=== PATIENT | female | born 1965 | race Caucasian/White ===

== ENCOUNTER 2017-09-16 16:33 | Emergency (ER) | payer BC ==
[2017-09-16 16:59] VITALS: BP 132/86
--- NOTE | 2017-09-21 08:54 | UC ---
Maryanne Woodward Emily, scribed for Wendy Mendoza MD on 09/16/17 at 1820 . Back Pain HPI - HPI Summary HPI Summary: This patient is a 52 year old F presenting to urgent care with a chief complaint of middle back pain radiating to RLE that began 2 days ago. Pt reports pain in leg feeling like a [place] horse. The patient rates the pain 8 /10 in severity. Symptoms alleviated by nothing. Patient denies loss of bladder control. Pt denies any recent trauma. Pt has a history back problems. Patients medications reviewed this visit. - History of Current Complaint Chief Complaint: UCBackPain Stated Complaint: BACK PAIN Time Seen by Provider: 09/16/17 17:57 Hx Obtained From: Patient Onset/Duration: Sudden Onset, Lasting Days, Still Present Timing: Constant, Lasting Days Severity Initially: Severe Severity Currently: Severe Pain Intensity: 8 Pain Scale Used: 0-10 Numeric Alleviating Factor(s): Nothing - Allergies/Home Medications Allergies/Adverse Reactions: Allergies Allergy/AdvReac Type Severity Reaction Status Date / Time Sulfamethoxazole Allergy Severe Itching Verified 08/19/17 15:08 w/Trimethoprim [From Bactrim] Home Medications: Home Medications Naproxen Sodium [Naproxen Sodium 220 mg] 440 mg PO 09/16/17 [History] PMH/Surg Hx/FS Hx/Imm Hx Previously Healthy: No Endocrine History: Other Other Endocrine History: Negative diabetes Cardiovascular History: Hypertension Respiratory History: Asthma Cancer History: Other Other Cancer History: Basal Cell CA Other History Of: Negative For: Anticoagulant Therapy - Surgical History Surgical History: Yes Surgery Procedure, Year, and Place: TUBAL LIGATION,. CHOLECYSTECTOMY. BREAST AUGMENTATION. TONSILECTOMY - Family History Known Family History: Positive: Cardiac Disease, Hypertension - Social History Occupation: Employed Full-time Lives: With Family Alcohol Use: None Substance Use Type: None Smoking Status (MU): Never Smoked Tobacco Review of Systems Genitourinary: Other - Negative loss of bladder control Musculoskeletal: Other: - Positive back pain All Other Systems Reviewed And Are Negative: Yes Physical Exam Triage Information Reviewed: Yes Appearance: Well-Appearing - Pt easiy changes position chair to exam table, lying, No Pain Distress Vital Signs: Initial Vital Signs Temp 98.1 F 09/16/17 16:55 Pulse 87 09/16/17 16:55 Resp 18 09/16/17 16:55 BP 132/86 09/16/17 16:55 Pulse Ox 98 09/16/17 16:55 Eye Exam: Normal ENT Exam: Normal ENT: Positive: Normal ENT inspection, Hearing grossly normal Dental Exam: Normal Neck exam: Normal Neck: Positive: 1 Respiratory Exam: Normal Respiratory: Positive: Chest non-tender, Lungs clear, Normal breath sounds, No respiratory distress, No accessory muscle use Cardiovascular Exam: Normal Cardiovascular: Positive: RRR, No Murmur, Pulses Normal Abdominal Exam: Normal Abdomen Description: Positive: Nontender, No Organomegaly, Soft. Negative: CVA Tenderness (R), CVA Tenderness (L) Musculoskeletal: Positive: Other: - No pain spinous process c/t/l/s + mild pain paraspinal right lumbar > left + SLE b/l + flex/ext knee, ankle + great toe extension Neurological Exam: Normal Neurological: Positive: Other: - + gross b/l equal sensation throughout LE 2+ patellar b/l no clonus Psychological Exam: Normal Skin Exam: Normal Back Pain Course/Dx - Course Course Of Treatment: PT with persistent, chronic back pain with paresthesia RLE no leg weakness. Pt with paraspinal pain with direct palp. Reviewed records f. will give flexeril. motrain/apap. lifting restrictions - Differential Dx/Diagnosis Provider Diagnoses: back pain Discharge - Discharge Plan Condition: Stable Disposition: HOME Prescriptions: Methylprednisolone [Medrol Dosepak 4 MG*] 4 mg PO .SEE CARY INSTRUCTION #1 tab Patient Education Materials: Lumbar Radiculopathy (ED), Chronic Back Pain (ED) Forms: *Work Release Referrals: Beena Winters MD [Primary Care Provider] - Brandi Hobson MD [Medical Doctor] - Additional Instructions: - Stay well hydrated. Drink plenty of non-alcohoholic, non-caffinated beverages - Take prednisone as prescribed until gone - Okay to take Tylenol every 6 hours for pain - Apply heat to your back. Once your muscles are warm, slow gentle stretching exercises are important - Contact the hospital billing / account office at [phone] to discuss a payment plan for your bill - Contact the pain management clinic to schedule a follow-up appointment and discuss the further evaluation / treatment for your back The documentation as recorded by the Maryanne saavedra Emily accurately reflects the service I personally performed and the decisions made by me, Wendy Mendoza MD.
== END 2017-09-16 18:43 | disposition home or self-care (01) ==
LOC: UCEAST 16:33
DX: M54.9 Dorsalgia, unspecified (principal); I10 Essential (primary) hypertension; J45.909 Unspecified asthma, uncomplicated; Z85.828 Personal history of other malignant neoplasm of skin; Z90.49 Acquired absence of other specified parts of digestive tract; Z88.2 Allergy status to sulfonamides
CPT/HCPCS: 81003; 99212; G0463

== ENCOUNTER 2017-10-25 11:36 | Emergency (ER) | payer BC ==
[2017-10-25 11:59] VITALS: BP 132/91
--- NOTE | 2017-10-25 12:39 | UC ---
Throat Pain/Nasal Fab HPI - HPI Summary HPI Summary: 52 y/o female presents with sinus symptoms and cough for 1 week. She tells me that 1 week ago she developed sinus pain/pressure/congestion and a productive cough. Over the last day or two the cough has not been productive, but that she is coughing frequently. She has been taking an OTC "cough syrup" with little relief. She has some pain in the right side of her neck, just below her right mandible, which started today. Denies fever, chills, SOB, chest pain, abdominal pain, n/v/d/c, headache, or dizziness. - History of Current Complaint Chief Complaint: UCGeneralIllness Stated Complaint: COUGH,SORE THROAT Time Seen by Provider: 10/25/17 12:32 Hx Obtained From: Patient Hx Last Menstrual Period: post menopausal Cough: Nonproductive - Allergies/Home Medications Allergies/Adverse Reactions: Allergies Allergy/AdvReac Type Severity Reaction Status Date / Time Sulfamethoxazole Allergy Severe Itching Verified 10/25/17 11:58 w/Trimethoprim [From Bactrim] Home Medications: Home Medications Gabapentin CAP(*) [Neurontin 100 mg CAP(*)] 10/25/17 [History] Oxycodone HCl 5 mg PO TID PRN 10/25/17 [History Confirmed 10/25/17] PMH/Surg Hx/FS Hx/Imm Hx Cardiovascular History: Hypertension Other History Of: Negative For: Anticoagulant Therapy - Surgical History Surgical History: Yes Surgery Procedure, Year, and Place: TUBAL LIGATION,. CHOLECYSTECTOMY. BREAST AUGMENTATION. TONSILECTOMY - Family History Known Family History: Positive: Cardiac Disease, Hypertension - Social History Lives: With Family Alcohol Use: None Substance Use Type: None Smoking Status (MU): Never Smoked Tobacco - Immunization History Most Recent Influenza Vaccination: declined Review of Systems Constitutional: Negative Skin: Negative Eyes: Negative ENT: Nasal Discharge, Sinus Congestion, Sinus Pain/Tenderness Respiratory: Cough Cardiovascular: Negative Gastrointestinal: Negative Musculoskeletal: Other: - Right neck pain Neurological: Negative All Other Systems Reviewed And Are Negative: Yes Physical Exam Triage Information Reviewed: Yes Appearance: Well-Appearing, No Pain Distress, Well-Nourished Vital Signs: Initial Vital Signs Temp 97.5 F 10/25/17 11:52 Pulse 70 10/25/17 11:52 Resp 22 10/25/17 11:52 BP 132/91 10/25/17 11:52 Pulse Ox 98 10/25/17 11:52 Vital Signs Reviewed: Yes Eyes: Positive: Conjunctiva Clear. Negative: Conjunctiva Inflamed, Discharge ENT: Positive: Hearing grossly normal, Pharynx normal, Nasal congestion, Nasal drainage, TMs normal, Sinus tenderness, Uvula midline. Negative: Pharyngeal erythema, TM bulging, TM dull, TM red, Tonsillar swelling, Tonsillar exudate, Hoarse voice Neck: Positive: Supple, No Lymphadenopathy, Other: - TTP right neck over the SCM. Pain is reproduced with palpation and stretching. Respiratory: Positive: Chest non-tender, Lungs clear, Normal breath sounds, No respiratory distress, No accessory muscle use Cardiovascular: Positive: RRR, No Murmur, Pulses Normal Neurological: Positive: Alert Psychological: Positive: Age Appropriate Behavior Skin: Negative: rashes Throat Pain/Nasal Course/Dx - Course Course Of Treatment: Sinusitis. Bronchitis. Suspect muscle strain of right neck - likely cough from cough/blowing her nose. I advised her to try ibuprofen as needed for pain. She is requesting out of work for the next 3 days. - Differential Dx/Diagnosis Differential Diagnosis/HQI/PQRI: Influenza, Mononucleosis, Otitis Media, Pharyngitis, Sinusitis, Tonsillitis, URI Provider Diagnoses: Sinusitis. Bronchitis. Muscle strain right neck Discharge - Discharge Plan Condition: Stable Disposition: HOME Prescriptions: Amoxicillin PO (*) [Amoxicillin 500 MG CAP*] 500 mg PO Q12H #14 cap Benzonatate CAP* [Tessalon 100 MG CAP*] 100 mg PO TID PRN #21 cap PRN Reason: Cough Patient Education Materials: Sinusitis (ED) Forms: *Work Release Referrals: Beena Winters MD [Primary Care Provider] - Additional Instructions: If you develop a fever, shortness of breath, chest pain, new or worsening symptoms - please call your PCP or go to the ED. Your blood pressure was high at todays visit. Please see your primary provider within 4 weeks for recheck and re-evaluation.
== END 2017-10-25 12:54 | disposition home or self-care (01) ==
LOC: UCEAST 11:36
DX: J40 Bronchitis, not specified as acute or chronic (principal); J32.9 Chronic sinusitis, unspecified; S16.1XXA Strain of muscle, fascia and tendon at neck level, initial encounter; I10 Essential (primary) hypertension; Z88.2 Allergy status to sulfonamides; X58.XXXA Exposure to other specified factors, initial encounter; Y92.9 Unspecified place or not applicable
CPT/HCPCS: 99212; G0463

== ENCOUNTER 2018-10-15 16:35 | Emergency (ER) | payer BC ==
[2018-10-15 16:45] VITALS: BP 123/76
--- NOTE | 2018-10-15 16:48 | UC ---
Respiratory Complaint HPI - HPI Summary HPI Summary: 53 yo female presents with an intermittently productive cough and chest congestion for the last 3 days getting progressively worse. Does feel short of breath at times. She does not smoke. Hx of asthma as a child, but has not had any issues in a long time. Has felt feverish, but has not taken her temperature. Has been taking mucinex with no relief. Denies sinus symptoms, sore throat, chest pain, n/v. - History of Current Complaint Chief Complaint: UCRespiratory Stated Complaint: URI Hx Obtained From: Patient Hx Last Menstrual Period: post menopausal Onset/Duration: Gradual Onset Severity Currently: None Pain Intensity: 0 Character: Cough: Nonproductive, Cough: Productive - Allergies/Home Medications Allergies/Adverse Reactions: Allergies Allergy/AdvReac Type Severity Reaction Status Date / Time sulfamethoxazole Allergy Itching Verified 10/15/18 16:45 [From Bactrim] trimethoprim [From Bactrim] Allergy Itching Verified 10/15/18 16:45 PMH/Surg Hx/FS Hx/Imm Hx - Additional Past Medical History Additional PMH: Chronic pain Cardiovascular History: Hypertension Other History Of: Negative For: Anticoagulant Therapy - Surgical History Surgical History: Yes Surgery Procedure, Year, and Place: TUBAL LIGATION,. CHOLECYSTECTOMY. BREAST AUGMENTATION. TONSILECTOMY - Family History Known Family History: Positive: Cardiac Disease, Hypertension - Social History Occupation: Employed Full-time Lives: With Family Alcohol Use: None Substance Use Type: None Smoking Status (MU): Never Smoked Tobacco - Immunization History Most Recent Influenza Vaccination: declined Review of Systems All Other Systems Reviewed And Are Negative: Yes Constitutional: Positive: Fever Skin: Positive: Negative Eyes: Positive: Negative ENT: Positive: Negative Respiratory: Positive: Cough Cardiovascular: Positive: Negative Gastrointestinal: Positive: Negative Neurovascular: Positive: Negative Neurological: Positive: Negative Psychological: Positive: Negative Physical Exam - Summary Physical Exam Summary: GENERAL: NAD. WDWN. No pain distress. SKIN: No rashes, sores, lesions, or open wounds. HEENT: Head: AT/NC Eyes: Conjunctiva clear without inflammation or discharge. Ears: Hearing grossly normal. TMs intact, no bulging, erythema, or edema. Nose: Nasal mucosa pink and moist. NTTP maxillary and frontal sinus. Throat: Posterior oropharynx without exudates, erythema, or tonsillar enlargement. Uvula midline. NECK: Supple. Nontender. No lymphadenopathy. CHEST: Mild wheezing throughout with crackle RLL. No accessory muscle use. Breathing comfortably and in no distress. CV: RRR. Without m/r/g. Pulses intact. Cap refill <2seconds NEURO: Alert. PSYCH: Age appropriate behavior. Triage Information Reviewed: Yes Vital Signs: Initial Vital Signs Temp 100.9 F 10/15/18 16:43 Pulse 93 10/15/18 16:43 Resp 16 10/15/18 16:43 BP 123/76 10/15/18 16:43 Pulse Ox 98 10/15/18 16:43 Vital Signs Reviewed: Yes Diagnostic Evaluation - Laboratory O2 Sat by Pulse Oximetry: 98 Respiratory Course/Dx - Course Course Of Treatment: CXR: IMPRESSION: NO ACTIVE CARDIOPULMONARY DISEASE. Given fever, hx of asthma, and exam - will treat with anbx. - Differential Dx/Diagnosis Provider Diagnosis: Asthma exacerbation Discharge - Sign-Out/Discharge Documenting (check all that apply): Patient Departure All imaging exams completed and their final reports reviewed: Yes - Discharge Plan Condition: Stable Disposition: HOME Prescriptions: Azithromycin TAB* [Zithromax TAB (Z-CARY) 250 mg #6 tabs] 2 tab PO .TODAY, THEN 1 DAILY #1 cary Benzonatate CAP* [Tessalon 100 MG CAP*] 100 mg PO TID PRN #21 cap PRN Reason: Cough predniSONE TAB* [Deltasone 20 MG TAB*] 40 mg PO DAILY #10 tab Patient Education Materials: Acute Bronchitis (ED) Forms: *Work Release Referrals: Beena Winters MD [Primary Care Provider] - Additional Instructions: If you develop a fever, shortness of breath, chest pain, new or worsening symptoms - please call your PCP or go to the ED. - Billing Disposition and Condition Condition: STABLE Disposition: Home
== END 2018-10-15 17:31 | disposition home or self-care (01) ==
LOC: UCEAST 16:35
DX: J45.901 Unspecified asthma with (acute) exacerbation (principal); I10 Essential (primary) hypertension; Z88.2 Allergy status to sulfonamides
CPT/HCPCS: 71046; 99212; G0463

== ENCOUNTER 2019-08-17 13:14 | Emergency (ER) | payer BC ==
--- NOTE | 2019-08-17 14:30 | ED ---
Lower Extremity - HPI Summary HPI Summary: 54 yo female presents with RIGHT knee/leg pain. She tells me that 2 weeks ago she started a new job that requires a lot of lifting and going up and down stairs/ladders. 1 week ago she dropped a tube tv on her right thigh. Since that time she has had posterior right knee pain that is worse with ambulation and activity. Better with rest and non weight bearing. She takes narcotic pain medication for her chronic back pain, but states this is not helping her knee pain. She has not been resting or icing the area. Denies numbness or tingling. No calf pain. She does not smoke. No recent travel. - History of Current Complaint Chief Complaint: EDExtremityLower Stated Complaint: RIGHT LEG PAIN PER PT Time Seen by Provider: 08/17/19 14:29 Hx Obtained From: Patient Hx Last Menstrual Period: post menopausal Severity Initially: Moderate Severity Currently: Moderate Pain Intensity: 7 Pain Scale Used: 0-10 Numeric - Allergies/Home Medications Allergies/Adverse Reactions: Allergies Allergy/AdvReac Type Severity Reaction Status Date / Time sulfamethoxazole Allergy Itching Verified 07/29/19 08:24 [From Bactrim] trimethoprim [From Bactrim] Allergy Itching Verified 07/29/19 08:24 PMH/Surg Hx/FS Hx/Imm Hx Endocrine/Hematology History: Denies: Hx Anticoagulant Therapy, Hx Diabetes Cardiovascular History: Reports: Hx Hypertension Denies: Hx Pacemaker/ICD Respiratory History: Reports: Hx Asthma, Hx Pneumonia History: Denies: Hx Renal Disease Musculoskeletal History: Reports: Hx Arthritis, Hx Back Problems, Hx Orthopedic Injury Denies: Hx Scoliosis Sensory History: Denies: Hx Hearing Aid Neurological History: Reports: Hx Headaches, Other Neuro Impairments/Disorders - hx head injury, dizziness Psychiatric History: Denies: Hx Panic Disorder - Cancer History Cancer Type, Location and Year: basal cell skin cancer - removed surgically Hx Chemotherapy: No Hx Radiation Therapy: No - Surgical History Surgery Procedure, Year, and Place: TUBAL LIGATION,. CHOLECYSTECTOMY. BREAST AUGMENTATION. TONSILECTOMY - Immunization History Date of Tetanus Vaccine: up to date per pt Infectious Disease History: No Infectious Disease History: Denies: Traveled Outside the [place] in Last 30 Days - Family History Known Family History: Positive: Cardiac Disease, Hypertension - Social History Occupation: Employed Full-time Lives: With Family Alcohol Use: None Substance Use Type: Reports: None Smoking Status (MU): Never Smoked Tobacco Review of Systems Constitutional: Negative Cardiovascular: Negative Respiratory: Negative Gastrointestinal: Negative Genitourinary: Negative Musculoskeletal: Other - Right knee pain Neurological: Negative Psychological: Normal All Other Systems Reviewed And Are Negative: No Physical Exam - Summary Physical Exam Summary: GENERAL: NAD. WDWN. No pain distress. SKIN: No rashes, sores, lesions, or open wounds. No ecchymosis or hematoma on right LE CHEST: No accessory muscle use. Breathing comfortably and in no distress. CV: Pulses intact popliteal, PT, and DP. Cap refill <2seconds MSK: RIGHT KNEE: Mild TTP about posterior knee. FROM. Strength 5/5. No edema or obvious bony deformities. No patella apprehension. Negative Zahra, A/P drawer , Jacquelin, and varus/valgus stress. Right calf: soft and nontender. Negative april sign. NEURO: Alert. Sensations intact and symmetric B/L LEs PSYCH: Age appropriate behavior. Triage Information Reviewed: Yes Vital Signs On Initial Exam: Initial Vitals Temp Pulse Resp BP Pulse Ox 97.2 F 73 16 120/82 97 08/17/19 13:34 08/17/19 13:34 08/17/19 13:34 08/17/19 13:34 08/17/19 13:34 Vital Signs Reviewed: Yes Procedures - Sedation Patient Received Moderate/Deep Sedation with Procedure: No Diagnostics - Vital Signs Vital Signs Temp Pulse Resp BP Pulse Ox 08/17/19 13:34 97.2 F 73 16 120/82 97 - Laboratory Lab Statement: Any lab studies that have been ordered have been reviewed, and results considered in the medical decision making process. - Radiology Knee and Tib/Fib XR Radiology Interpretation Completed By: Radiologist Summary of Radiographic Findings: IMPRESSION: NO ACUTE OSSEOUS INJURY. IF SYMPTOMS PERSIST, RECOMMEND REPEAT IMAGING. - Ultrasound Right leg Ultrasound Interpretation Completed By: Radiologist Summary of Ultrasound Findings: IMPRESSION: NO EVIDENCE OF DEEP VENOUS THROMBOSIS IS IDENTIFIED. Lower Extremity Course/Dx - Course Course Of Treatment: US and XRs as above. Suspect MSK related knee pain possibly due to her new job stairs/ladders as well as her tube tv injury. Recommend rest, ice, and elevation. Continue pain medication. Refer to Ortho and PT. Pt voiced understanding and agrees with the plan - Diagnoses Provider Diagnoses: Right knee pain Discharge ED - Sign-Out/Discharge Documenting (check all that apply): Patient Departure - Discharge Plan Condition: Stable Disposition: HOME Patient Education Materials: Knee Pain (ED) Referrals: Beena Winters MD [Primary Care Provider] - Michelle Torres MD [Medical Doctor] - As Soon As Possible Additional Instructions: If you develop a fever, shortness of breath, chest pain, new or worsening symptoms - please call your PCP or go to the ED immediately. 1) Rest, Ice, and elevate your knee to decrease pain 2) May take ibuprofen as directed for discomfort in addition to your usual pain medications 3) I recommend that you follow up with Physical Therapy and Orthopedics at the number below for further evaluation within 1-2 weeks - Billing Disposition and Condition Condition: STABLE Disposition: Home
[2019-08-17] MEDS ORDERED: Ketorolac *IM* INJ* 60 MG/2 ML VIAL IM ONE (15:50)
[2019-08-17 16:01] VITALS: BP 119/76
== END 2019-08-17 16:00 | disposition home or self-care (01) ==
LOC: ED 13:14
DX: M25.561 Pain in right knee (principal); G89.29 Other chronic pain; I10 Essential (primary) hypertension; J45.909 Unspecified asthma, uncomplicated; M19.90 Unspecified osteoarthritis, unspecified site; Z88.2 Allergy status to sulfonamides; Z88.8 Allergy status to other drugs, medicaments and biological substances; Z85.828 Personal history of other malignant neoplasm of skin
CPT/HCPCS: 96374; 99282; J1885